=== PATIENT | male | born 1930 | race Caucasian/White ===

== ENCOUNTER 2018-01-26 22:56 | Inpatient (IN) | payer MEDICARE ==
[~2018-01-26] VITALS: Ht 175.3 cm; Wt 100.0 kg
[~2018-01-26 22:56] MED LIST: ACET-3068 PO; ASPI-1071 PO; CLOP75TA35 PO; GABA-330 PO; HYT1T PO; LANTUS SQ; LISI40TA4 PO; MULT-1074 PO; NITR0.4T51 SL; PHEN-873 PO; PIOG45TA PO; TORS20TA23 PO; VITA-293 PO; ZOC40T PO
[2018-01-26 23:26] LABS: BASOPHILS % (AUTO) 0.2 % (0-1); EOSINOPHILS # (AUTO) 0.1 X10'3 (0-0.9); EOSINOPHILS % (AUTO) 1.5 % (0-6); HEMATOCRIT 28.4 % (42.0-52.0); HEMOGLOBIN 9.7 g/dl (14.0-17.9); LYMPHOCYTES # (AUTO) 1.6 X10'3 (1.1-4.8); LYMPHOCYTES % (AUTO) 28.3 % (21-51); MEAN CORPUSCULAR HEMOGLOBIN 30.6 PG (27.0-31.0); MEAN CORPUSCULAR HGB CONC 34.1 % (33.0-36.5); MEAN CORPUSCULAR VOLUME 89.5 FL (78-98); MEAN PLATELET VOLUME 7.7 FL (7.4-10.4); MONOCYTES # (AUTO) 0.4 X10'3 (0-0.9); MONOCYTES % (AUTO) 7.1 % (2-12); NEUTROPHILS # (AUTO) 3.6 X10'3 (1.8-7.7); NEUTROPHILS % (AUTO) 62.9 % (42-75); PLATELET COUNT 136 X10'3 (140-440); RED BLOOD COUNT 3.17 X10'6 (4.70-6.10); RED CELL DISTRIBUTION WIDTH 14.3 % (11.5-14.5); WHITE BLOOD COUNT 5.7 X10'3 (4.5-11.0)
[2018-01-26 23:38] LABS: INR 2.2 INR; PARTIAL THROMBOPLASTIN TIME 36 SECONDS (22-32); PROTHROMBIN TIME 21.7 SECONDS (9.0-12.0)
[2018-01-26 23:41] LABS: ALANINE AMINOTRANSFERASE 26 U/L (12-78); ALBUMIN 2.9 G/DL (3.4-5.0); ALBUMIN/GLOBULIN RATIO 0.8 (1.1-1.5); ANION GAP 5 (8-16); ASPARTATE AMINO TRANSFERASE 14 U/L (10-37); BILIRUBIN,TOTAL 0.4 MG/DL (0.1-1.0); BLOOD UREA NITROGEN 23 MG/DL (7-18); CALCIUM 8.6 MG/DL (8.5-10.1); CHLORIDE 104 MMOL/L (99-107); CREATININE 1.77 MG/DL (0.60-1.10); GLUCOSE 149 MG/DL (70-104); SODIUM 142 MMOL/L (135-145); TOTAL CARBON DIOXIDE 32.6 MMOL/L (24-32); TOTAL PROTEIN 6.5 G/DL (6.4-8.2); eGFR 37 ML/MIN
[2018-01-26 23:42] LABS: ALKALINE PHOSPHATASE 57 IU/L (46-116)
[2018-01-27] MEDS ORDERED: magnesium hydroxide 30ml (MOM) UD suspension PO PRN
[2018-01-27] MEDS ORDERED: mag hydrox/Alum hydrox/simeth 30ml oral suspension PO PRN
[2018-01-27] MEDS ORDERED: HYDROcodone/acetaminophen 10/325mg tab PO PRN
[2018-01-27] MEDS ORDERED: ondansetron/PF 4mg/2ml inj IV PRN
[2018-01-27] MEDS ORDERED: HYDROcodone/acetaminophen 5mg/325mg tablet PO PRN
[2018-01-27] MEDS ORDERED: metoprolol tartrate 1mg/ml inj IV PRN
[2018-01-27] MEDS ORDERED: CAFFEINE CITRATE 60 MG/3 ML injection vial IV PRN
[2018-01-27] MEDS ORDERED: acetaminophen 325mg tablet PO PRN ×2
[2018-01-27] MEDS ORDERED: nitroGLYCERIN 0.4mg SUBLingual tab SL PRN
[2018-01-27] MEDS ORDERED: regadenoson 0.4mg/5ml syringe IV ONE
[2018-01-27] MEDS ORDERED: nitroGLYCERIN 0.4mg SUBLingual tab SL SCH (00:10)
[2018-01-27] MEDS ORDERED: glucagon, human recombinant 1mg kit SUBCUT PRN (00:15)
[2018-01-27] MEDS ORDERED: MESSAGE TO PHARMACY PO ONE (00:15)
[2018-01-27] MEDS ORDERED: insulin Lispro (HumaLOG) vial - multi-dose SQ SCH (00:15)
[2018-01-27] MEDS ORDERED: dextrose 50%-water 50ml dispensing syringe IV PRN ×2 (00:15)
[2018-01-27] MEDS ORDERED: dextrose ORAL solution 15 GM/59 ML bottle PO PRN ×2 (00:15)
[2018-01-27] MEDS ORDERED: INSU300I (00:22)
[2018-01-27] MEDS ORDERED: MUPI22OI30 TOP (00:22)
[2018-01-27] MEDS ORDERED: FERR325T39 PO (00:22)
[2018-01-27] MEDS ORDERED: LACT1CAP65 PO (00:22)
[2018-01-27] MEDS ORDERED: CHOL400T32 PO (00:22)
[2018-01-27] MEDS ORDERED: COU1T PO (00:22)
[2018-01-27] MEDS ORDERED: CARV-50 PO (00:22)
[2018-01-27] MEDS ORDERED: COU5T PO (00:22)
[2018-01-27 01:15] VITALS: BP 138/57
[2018-01-27 05:27] LABS: HEMOGLOBIN A1C 7.5 % (4.5-6.2)
[2018-01-27 07:01] VITALS: BP 133/94
[2018-01-27] MEDS ORDERED: clopidogrel 75mg tablet PO SCH (08:00)
[2018-01-27] MEDS ORDERED: gabapentin 400mg capsule PO SCH (08:00)
[2018-01-27] MEDS ORDERED: insulin glargine (Lantus) pen - multi-dose SQ SCH ×3 (08:00→21:00)
[2018-01-27] MEDS ORDERED: multivitamins, therapeutics tablet PO SCH (08:00)
[2018-01-27] MEDS ORDERED: lisinopril 20mg tablet PO SCH (08:00)
[2018-01-27] MEDS ORDERED: furosemide 40mg tablet PO SCH (08:00)
[2018-01-27] MEDS ORDERED: vitamin B comp w/Vit. C tab 1 TAB TABLET PO SCH (08:00)
[2018-01-27] MEDS ORDERED: temazepam 15mg capsule PO PRN (21:00)
[2018-01-27] MEDS ORDERED: terazosin 5mg capsule PO SCH (21:00)
[2018-01-27] MEDS ORDERED: atorvastatin 20mg tablet PO SCH (21:00)
== END 2018-01-27 10:35 | disposition home or self-care (01) | DRG 392 ==
LOC: ER 22:56 → ED HOLD 01-27 → SUR 3N 01-27 01:35
PROVIDERS: ADMIT Hospitalist; ATTEND Family Medicine
DX: K22.2 Esophageal obstruction (principal); E46 Unspecified protein-calorie malnutrition; R07.89 Other chest pain; D64.9 Anemia, unspecified; E11.22 Type 2 diabetes mellitus with diabetic chronic kidney disease; Z68.32 Body mass index [BMI] 32.0-32.9, adult; E78.00 Pure hypercholesterolemia, unspecified; I12.9 Hypertensive chronic kidney disease with stage 1 through stage 4 chronic kidney disease, or unspecified chronic kidney disease; K44.9 Diaphragmatic hernia without obstruction or gangrene; I25.10 Atherosclerotic heart disease of native coronary artery without angina pectoris; R09.02 Hypoxemia; N18.9 Chronic kidney disease, unspecified; Z95.1 Presence of aortocoronary bypass graft; Z79.02 Long term (current) use of antithrombotics/antiplatelets; Z79.82 Long term (current) use of aspirin; Z79.4 Long term (current) use of insulin; Z79.01 Long term (current) use of anticoagulants; Z79.899 Other long term (current) drug therapy; Z85.828 Personal history of other malignant neoplasm of skin; Z86.73 Personal history of transient ischemic attack (TIA), and cerebral infarction without residual deficits; Z82.3 Family history of stroke; Z83.3 Family history of diabetes mellitus
CPT/HCPCS: 36415; 71045; 80053; 82948; 83036; 83880; 84484; 85025; 85610; 85730; 87070; 93005; 93306; 99285; J1815